=== PATIENT | male | born 1960 | race Caucasian/White ===

== ENCOUNTER 2024-11-16 12:56 | Day surgery (SDC) | payer MEDICARE, BC ==
[2024-11-14 08:39] VITALS: BMI 26.4
[~2024-11-16 12:56] MED LIST: HYDROcodone/Acetaminophen 10/325 mg Tablet PO PRN; Ketorolac Tromethamine 30 MG (1 mL) VIAL IVP SCH; Lidocaine 1% PF 5 ML VIAL ONE; Ondansetron PF 4 MG/2 ML Vial IVP PRN; PROPOFOL 200 MG/20 ML VIAL ONE; Promethazine HCl 25 MG/ML VIAL IM PRN; Rocuronium Bromide 10 MG/ML (10ML VIAL) ONE; Ropivacaine 0.2% 550 ML 550 ML NERVE BLCK SCH; Zolpidem Tartrate 5 MG TAB PO PRN; ePHEDrine Sulfate 50 MG/10 ML VIAL ONE; traMADol HCl 50 MG TAB PO PRN
== END 2024-11-16 15:15 | disposition home or self-care (01) ==
LOC: SDC 12:56
PROVIDERS: ATTEND Orthopaedic Surgery
PROC: 0RNJ4ZZ Release Right Shoulder Joint, Percutaneous Endoscopic Approach (ICD-10-PCS; principal; 2024-11-16)
PROC: 0LS30ZZ Reposition Right Upper Arm Tendon, Open Approach (ICD-10-PCS; 2024-11-16)
DX: M75.41 Impingement syndrome of right shoulder (principal); M75.21 Bicipital tendinitis, right shoulder; I10 Essential (primary) hypertension; E78.5 Hyperlipidemia, unspecified; K21.9 Gastro-esophageal reflux disease without esophagitis; I25.2 Old myocardial infarction; Z98.890 Other specified postprocedural states; Z79.899 Other long term (current) drug therapy; I25.10 Atherosclerotic heart disease of native coronary artery without angina pectoris
CPT/HCPCS: 23430; 29823; 64416; A4306; J2704; J2795; C1713